=== PATIENT | female | born 1990 | race Caucasian/White ===

== ENCOUNTER 2016-07-20 18:15 | Inpatient (IN) | payer MEDICAID ==
[~2016-07-20] VITALS: Ht 162.6 cm; Wt 72.6 kg
[~2016-07-20 18:15] MED LIST: BUPIVACAINE 0.5% PF 10ML EPIDURAL ONE
[2016-07-20] MEDS ORDERED: PROMETHAZINE 25 MG/ML VIAL IV PRN (18:55)
[2016-07-20] MEDS ORDERED: ACETAMINOPHEN 325 MG TAB PO PRN (18:55)
[2016-07-20] MEDS ORDERED: LIDOCAINE 1% 30 ML PF INFILTRATE ONE (18:55)
[2016-07-20] MEDS ORDERED: CEFAZOLIN (LD/OB) 100 ML IV PRN (18:55)
[2016-07-20] MEDS ORDERED: FAMOTIDINE 20 MG TAB PO PRN (18:55)
[2016-07-20] MEDS ORDERED: FAMOTIDINE 20 MG INJ IV PRN (18:55)
[2016-07-20] MEDS ORDERED: METOCLOPRAMIDE 10 MG/2 ML VIAL IV PUSH PRN (18:55)
[2016-07-20] MEDS ORDERED: ONDANSETRON 4 MG VIAL IV PRN (18:55)
[2016-07-20] MEDS ORDERED: LIDOCAINE 1% BUFFERED 1 ML SYR INTRADERM PRN (18:55)
[2016-07-20] MEDS ORDERED: TERBUTALINE 1 MG/ML VIAL SUBQ PRN (18:55)
[2016-07-20] MEDS ORDERED: ALU/MAG/SIM 30 ML UDC PO PRN (18:55)
[2016-07-20] MEDS ORDERED: OXYTOCIN 15 UNITS/250 ML NS 250 ML IV SCH (18:55)
[2016-07-20 18:58] VITALS: Ht 162.6 cm; Wt 72.6 kg
[2016-07-20] MEDS: LACT RINGERS 1,000 ML IV SCH ×2 (19:58→21:30)
[2016-07-20] MEDS ORDERED: ROPIV/FENT 0.2%-2MCG/ML 100 ML EPIDURAL ONE (21:22)
[2016-07-20] MEDS ORDERED: FENTANYL 100 MCG/2 ML AMP ONE (21:23)
[2016-07-20] MEDS ORDERED: SODIUM CHLORIDE 0.9% 500 ML IV PRN (21:45)
[2016-07-20] MEDS ORDERED: ROPIV/FENT 0.2%-2MCG/ML 100 ML EPIDURAL SCH (21:45)
[2016-07-20] MEDS ORDERED: LACT RINGERS 500 ML IV PRN (21:45)
[2016-07-20] MEDS ORDERED: LACT RINGERS 500 ML IV ONE (21:45)
[2016-07-20] MEDS ORDERED: FENTANYL 100 MCG/2 ML AMP EPIDURAL ONE (21:45)
[2016-07-21] VITALS (9 sets, daily range): BP systolic 110–121; RESP 18–20; TEMP 97.4–98.4
[2016-07-21] MEDS ORDERED: OXYTOCIN 15 UNITS/250 ML NS 250 ML IV SCH (01:40)
[2016-07-21] MEDS ORDERED: BISACODYL 10 MG SUPP RECTAL PRN (01:40)
[2016-07-21] MEDS ORDERED: MAG HYDROX 30 ML UDC PO PRN (01:40)
[2016-07-21] MEDS ORDERED: TDaP 0.5 ML VIAL IM.VACC ONE (01:40)
[2016-07-21] MEDS ORDERED: ASTRINGENT MED PADS 40'S TOPICAL PRN (01:40)
[2016-07-21] MEDS ORDERED: MEASLES,MUMPS,RUBELLA VAC SUBQ.VACC ONE (01:40)
[2016-07-21] MEDS ORDERED: ZOLPIDEM 5 MG TAB PO PRN (01:40)
[2016-07-21] MEDS ORDERED: DERMOPLAST SPRAY TOPICAL PRN (01:40)
[2016-07-21] MEDS: OXYCODONE/APAP 5/325 TAB PO PRN ×5 (04:59→23:05)
[2016-07-21] MEDS: Ibuprofen 600 MG TAB PO SCH ×4 (06:29→23:05)
[2016-07-21] MEDS ORDERED: **ONLY ANESTEHSIA MAY ORDER OPIATES WHILE ON EPIDURAL XX SCH (08:00)
[2016-07-21] MEDS: DOCUSATE SOD 100 MG CAP PO SCH (09:14)
[2016-07-22 05:12] VITALS: BP_SYST 101; RESP 16; TEMP 98.2
[2016-07-22] MEDS: Ibuprofen 600 MG TAB PO SCH ×3 (05:22→17:56)
[2016-07-22 09:07] VITALS: BP_SYST 108; RESP 18; TEMP 97.6
[2016-07-22] MEDS: DOCUSATE SOD 100 MG CAP PO SCH (09:11)
[2016-07-22] MEDS: OXYCODONE/APAP 5/325 TAB PO PRN ×3 (11:05→21:59)
[2016-07-22 17:35] VITALS: BP_SYST 117; RESP 20; TEMP 98.3
[2016-07-23] MEDS: Ibuprofen 600 MG TAB PO SCH ×3 (00:23→11:56)
[2016-07-23] MEDS: OXYCODONE/APAP 5/325 TAB PO PRN ×2 (05:08→09:26)
[2016-07-23 05:21] VITALS: BP_SYST 111; RESP 16; TEMP 97.9
[2016-07-23] MEDS: DOCUSATE SOD 100 MG CAP PO SCH (08:58)
[2016-07-23 09:28] VITALS: BP_SYST 124; RESP 14; TEMP 98.3
[2016-07-23 11:14] VITALS: BP_SYST 124; RESP 14; TEMP 98.3
== END 2016-07-23 13:18 | disposition home or self-care (01) | DRG 775 ==
LOC: LDOP 18:15 → LD 19:37 → OB 07-21 16:00
PROVIDERS: ADMIT Obstetrics & Gynecology; ATTEND Obstetrics & Gynecology
PROC: 10E0XZZ Delivery of Products of Conception, External Approach (ICD-10-PCS; principal; 2016-07-21)
PROC: 10907ZC Drainage of Amniotic Fluid, Therapeutic from Products of Conception, Via Natural or Artificial Opening (ICD-10-PCS; 2016-07-21)
CPT/HCPCS: 59025; 82803; 85014; 85018; 85025; 96372